=== PATIENT | male | born 1990 | race Caucasian/White ===

== ENCOUNTER 2021-04-21 08:53 | Outpatient (CLI) | payer OTHER | END 2021-04-21 08:54 | disposition home or self-care (01) | LOC: CSHULT 08:53 | PROVIDERS: ATTEND Chiropractor | DX: I25.9 Chronic ischemic heart disease, unspecified (principal); R07.9 Chest pain, unspecified; Q23.1 Congenital insufficiency of aortic valve | CPT/HCPCS: 71046; 93005; 93010; 93306 ==